=== PATIENT | female | born 1975 | race Asian ===

== ENCOUNTER → 2025-04-07 13:30 | Outpatient (REF) | payer OTHER, SELFPAY | LOC: WDC 13:30 | PROVIDERS: ATTENDING PHYSICIAN Obstetrics & Gynecology Gynecology | DX: Z12.31 Encounter for screening mammogram for malignant neoplasm of breast (principal) | CPT/HCPCS: 77063; 77067 ==

== ENCOUNTER 2025-04-28 21:40 | Emergency (ER) | payer OTHER, SELFPAY ==
[2025-04-28 21:43] VITALS: BP 120/82
--- NOTE | 2025-04-28 22:42 | ED.GENMED ---
History of Present Illness
General
Chief Complaint: Abdominal Symptoms
Time Seen by Provider: 04/28/25 22:42
History of Present Illness
History of Present Illness:
PAST MEDICAL HISTORY AND REVIEW OF OLD RECORDS
- I reviewed records, the patient had laparoscopic vaginal hysterectomy and bilateral salpingectomy related to menorrhagia due to fibroids. I reviewed her records and her hemoglobin in the past was as low as 5.6.
Note:
CHIEF COMPLAINT(S)
Abdominal pain and rectal bleeding.
HISTORY OF PRESENT ILLNESS
The patient is a 49-year-old female presenting with a week-long history of abdominal pain localized in the upper abdomen. She describes the pain as cramping in nature, which wakes her up at night. The pain has been persistent, yet she has been able
to continue working. Recently, she experienced blood in her stool, noting uncertainty if it was from her bowel movements or urine. Further examination revealed potential internal hemorrhoids, but no obvious tears were identified in the vaginal area.
The patient reports feeling like vomiting but hasnt actually vomited and experiences aggravated pain after eating. Otke-yzw-zhzqdpv medications, including proton pump inhibitors and antacids, have been taken with little effect.
PAST SURGICAL HISTORY
The patient underwent a hysterectomy several years ago due to severe bleeding associated with fibroids.
REVIEW OF SYSTEMS
- Gastrointestinal: Week-long abdominal pain, described as cramping, with recent onset of blood in stool. Pain aggravated after eating, no vomiting, but feels the urge to vomit.
- Genitourinary: Blood noticed in urine.
- General: No mention of fever or general malaise.
PHYSICAL EXAM
General: Alert, no acute distress.
Skin: Warm, dry.
Head: Normocephalic, atraumatic.
Neck: Supple, trachea midline.
Eyes, Ears, Nose, Mouth, and Throat: Oral mucosa moist.
Cardiovascular: Normal peripheral perfusion, no edema. Normal rhythm
Respiratory: Respirations are non-labored. Breath sounds are clear
Gastrointestinal: Very mild epigastric tenderness, heme positive scant red blood on digital rectal examination with no definite masses
Back: Normal range of motion, normal alignment.
Musculoskeletal: Normal ROM, normal strength.
Neurological: Alert and oriented to person, place, time, and situation, no focal neurological deficit observed.
Psychiatric: Cooperative, appropriate mood and affect.
PROBLEM LIST
Acute Issues:
1. Abdominal pain
2. Rectal bleeding
3. Blood in urine
Chronic Problems:
1. History of fibroids leading to hysterectomy
PLAN
1. Order and perform a computed tomography (CAT) scan with oral contrast to assess the abdominal pain and identify any abnormalities such as gastrointestinal bleeding.
2. Conduct blood work to evaluate possible anemia or other abnormalities due to reported bleeding episodes.
3. Send urine samples to the lab for analysis to investigate the presence of blood in the urine.
4. Observe for signs of gastrointestinal bleeding or other significant findings.
DIFFERENTIAL DIAGNOSIS
The Differential Diagnosis includes, in no particular order and is not limited to:
1. Peptic ulcer disease
2. Gastroesophageal reflux disease (GERD)
3. Internal hemorrhoids
4. Colorectal cancer
5. Diverticulitis
6. Gastritis
7. Urinary tract infection
8. Inflammatory bowel disease
9. Gastrointestinal bleeding of unknown origin
10. Hematuria due to other causes (e.g., kidney stones)
RADIOLOGY
- CT imaging with oral and IV contrast was obtained that suggest gastritis
LABS
- White blood cell count is normal, hemoglobin normal, chemistries unremarkable. hCG is negative. Urinalysis shows no sign of infection.
UPDATE
-SUMMARY OF ENCOUNTER
The patient, a 49-year-old female, presented with complaints of upper abdominal pain and recent episodes of rectal bleeding. Imaging and tests were conducted to rule out major conditions such as appendicitis and bowel blockages. A CT scan with
contrast revealed a mildly inflamed stomach lining but no other significant findings. Given the cramping upper abdominal pain and potential gastrointestinal issues, a recommendation was made for the patient to begin tzfm-dxg-wjgkbgq omeprazole for
stomach discomfort. Furthermore, the patient was advised to follow up with a echocardiograph technician for further evaluation.
ASSESSMENT
The findings of the CT scan suggest mild gastritis as a possible cause for the patients symptoms of upper abdominal pain.
PLAN
1. Start omeprazole for 2 weeks for management of stomach discomfort.
2. Prescription for ondansetron (Zofran) for nausea, to be sent to the pharmacy.
3. Arrange follow-up with a echocardiograph technician for further evaluation and management.
INDEPENDENT REVIEW OF LABS AND INTERPRETATION OF TESTS
My independent interpretation of the CT scan indicates no surgical issues or major conditions like appendicitis or bowel blockage. The radiologist noted mild inflammation of the stomach lining, suggestive of mild gastritis.
PATIENT EDUCATION AND COUNSELING
The patient was advised about the sbrr-afz-mfduapr use of omeprazole to help alleviate stomach discomfort. The significance of managing gastritis symptoms and the importance of follow-up with a echocardiograph technician for further assessment were
discussed.
FOLLOW-UP INSTRUCTIONS
The patient was advised to follow up with a echocardiograph technician. A referral to a GI specialist was to be arranged, and efforts will be made to secure an earlier appointment. Recommended muvh-onn-lvddxlc PPI.
MEDICATION RECONCILIATION
Prescribed ondansetron (Zofran) for nausea as needed.
MEDICAL DECISION MAKING
-Complexity of Data Reviewed:
Chronic conditions affecting care include a history of hysterectomy due to fibroids.
Differential diagnosis considered: peptic ulcer disease, gastroesophageal reflux disease (GERD), internal hemorrhoids, colorectal cancer, diverticulitis, gastritis, urinary tract infection, inflammatory bowel disease, gastrointestinal bleeding of
unknown origin, hematuria due to other causes.
-Data:
Category 1:
My independent interpretation of the CT scan with contrast indicates no surgical issue, with a noted mild inflammation of the stomach lining suggestive of mild gastritis.
Category 3:
Discussion of management with a echocardiograph technician regarding earlier follow-up appointment arrangements.
-Risk:
Consideration of Admission/Observation:
Escalation of care including admission/observation was considered given the complexity and risk of the patients presenting complaint, but ultimately the patient is considered safe for outpatient management given the reassuring CT findings with no
acute life/organ-threatening processes and stable condition.
DIAGNOSIS
1. Gastritis, unspecified - ICD-10: K29.70
Past History
Past History
ED Past Medical History: None
ED Past Surgical History: None
Social History
Tobacco: Non-smoker
Alcohol: None
Phy Exam
Physical Exam
Physical Exam:
See HPI
Course
Orders/Labs/Results
Orders:
Orders
04/28/25 22:53
Famotidine [Pepcid] 40 mg IV NOW STA
Iohexol [Omnipaque] See Protocol PO NOW STA
04/28/25 22:54
Test Result ONCE
04/28/25 23:05
Complete Blood Count/With Diff Urgent
Comprehensive Metabolic Panel Urgent
HCG, Serum Qualitative Screen Urgent
Lipase Urgent
04/28/25 23:06
Urinalysis Reflex To Culture Urgent
Date Specimen was Collected: 04/28/25
Time Specimen was Collected: 22:57
Urine Microscopic Reflex Cult Urgent
04/29/25
CT Abd/pel W Iv And Oral Contr Urgent
Reason For Exam: epigastric pain; poor po intake; gi bleed
Abnormal Lab Results
04/28/25 04/28/25
23:05 23:06
RBC 4.02 L 10^6/uL
(4.20-5.40)
Hct 35.7 L %
(37.0-47.0)
Absolute Monos (auto) 0.7 H 10^3/uL
(0.1-0.6)
Monocytes % 10.6 H %
(1.7-9.3)
Glucose 124 H mg/dl
(70-99)
Urine Albumin (Reflex) 1+ A
(Neg - Trace)
04/28/25 23:05
04/28/25 23:05
Vital Signs
Initial and Last Documented VS:
Initial Vital Signs
Temp Pulse Resp BP Pulse Ox
37.2 C 62 19 120/82 100
04/28/25 21:43 04/28/25 21:43 04/28/25 21:43 04/28/25 21:43 04/28/25 21:43
Last Documented Vital Signs
Temp Pulse Resp BP Pulse Ox
37.2 C 64 18 115/65 100
04/28/25 21:43 04/28/25 23:11 04/28/25 23:11 04/28/25 23:11 04/28/25 23:11
*Pulse Oximetry
SaO2: 100
Oxygen Mode of Delivery: Room air
Patient hypoxic: no
*Critical Care Note
Total Time (30-74mins, 75-104mins- exclusive of procedures): Not Applicable
ED Attending Note
-
Portions of this chart may have been created with voice recognition software.� Occasional wrong word or��sound alike� substitutions may have occurred due to the inherent limitations of voice recognition software.
Discharge Plan
Departure
Patient Disposition: Home (Routine Discharge)
Date of Disposition: 04/29/25
Time of Disposition: 01:54
Patient with high blood pressure during this ER visit?: Yes
Discharge Problem:
Abdominal pain
Instructions: Abdominal Pain, BLOOD PRESSURE
Prescriptions:
New
ondansetron HCl 4 mg tablet
4 mg PO Q8H PRN (Reason: nausea and vomiting) Qty: 14 0RF
No Action
oxycodone-acetaminophen 5 MG/325 MG tablet
1 tab PO Q4HPRN PRN (Reason: mod-severe pain) 7 Days Qty: 30 0RF
Referrals:
Yani Rodriguez MD [Active, Gastroenterology]
NONE,* [Family Provider, Internal Medicine]
Activity Restrictions/Additional Instructions:
Your basic blood work is unremarkable. There is no sign of a urinary tract infection. There is no sign of appendicitis. The gallbladder is normal. The radiologist thought maybe you could have some degree of gastritis (inflammation/wall
thickening of the stomach). In addition to the Pepcid that you have been taking you can also take a 2-week course of skfi-xke-wvnoayr omeprazole. I also recommend you follow-up to GI doctor such as Dr. Rodriguez.
Interventions
Interventions:
*Risk Screen - Suicide Last Done: 04/28/25 21:43
*General Assessment Last Done: 04/28/25 21:43
*Neglect/Abuse Screening Last Done: 04/28/25 21:43
GE-Ukefwk-Wveiexhvmr Assessment Last Done: 04/28/25 23:25
Discharge Date and Time
Print Language: ROMANSH
[2025-04-28] MEDS: OMNIPAQUE 50 ML PO (23:07)
[2025-04-28] MEDS: PEPCID 40 MG IV (23:07)
[2025-04-28 23:10] VITALS: BP 115/65; BMI 25.2
[2025-04-28 23:11] VITALS: BP 115/65
[2025-04-28 23:20] LABS: Hematocrit 35.7 % (37.0-47.0); Hemoglobin 12.3 g/dL (12.0-16.0); Mean Corp Hgb Conc. 34.5 g/dL (33.0-37.0); Mean Corpuscular Volume 88.8 fL (81.0-99.0); Nucleated Red Blood Cells % 0 %; Platelet Count 313 10^3/uL (130-400); Red Cell Dist. Width 11.5 % (11.5-14.5)
[2025-04-28 23:22] LABS: Urine Character Clear (Clear)
[2025-04-28 23:28] LABS: HCG, Serum Qualitative Screen Negative
[2025-04-28 23:35] LABS: Urine Squamous Cell >30 /LPF (Few)
[2025-04-28 23:35] LABS: ALT (SGPT) 15 U/L (0-35); AST (SGOT) 18 U/L (14-36); Albumin 4.1 g/dl (3.5-5.0); Alkaline Phosphatase 60 U/L (38-126); Blood Urea Nitrogen 16 mg/dl (7-17); Calcium 9.3 mg/dl (8.4-10.2); Carbon Dioxide 27 mmol/L (22-30); Chloride 103 mmol/L (98-107); Estimated Creatinine Clearance 72 ml/min; Glucose 124 mg/dl (70-99); Lipase 188 U/L (23-300); Potassium 3.7 mmol/L (3.5-5.1); Sodium 137 mmol/L (135-145); Total Protein 7.5 g/dl (6.3-8.2); eGFR > 60.00
[2025-04-28 23:36] LABS: Urine Red Blood Cell None Seen /HPF (0-2); Urine White Cell 0-2 /HPF (0-5)
[2025-04-29 02:16] VITALS: BP 104/59
== END 2025-04-29 02:24 | disposition home or self-care (01) ==
LOC: EMR 21:40
PROVIDERS: EMERGENCY PHYSICIAN Emergency Medicine
DX: R10.9 Unspecified abdominal pain (principal); N92.0 Excessive and frequent menstruation with regular cycle
CPT/HCPCS: 99284; 96374; 74177; 80053; 81003; 81015; 83690; 84703; 85025; Q9967